=== PATIENT | female | born 1980 ===

== ENCOUNTER 2016-12-19 22:24 | Emergency (ER) | payer OTHER ==
[2016-12-19 22:30] VITALS: BP 112/72; PULSE 82; RESP 16; TEMP 98.1; O2SAT 100
--- NOTE | 2016-12-19 22:58 | ED PDOC ---
HPI: General Adult Time Seen by Provider: 12/19/16 22:47 Chief Complaint (Nursing): Cough, Cold, Congestion History Per: Patient Additional Complaint(s): Pt. c/o 1 day hx of cough, congestion, sore throat, and fever. Also reports feeling nauseous but has had not vomiting or abdominal pain. Denies sick contacts, recent travel, diarrhea, rash. Past Medical History Reviewed: Historical Data, Nursing Documentation, Vital Signs Vital Signs: Last Vital Signs Temp 98.1 F 12/19/16 22:27 Pulse 82 12/19/16 22:27 Resp 16 12/19/16 22:27 BP 112/72 12/19/16 22:27 Pulse Ox 100 12/19/16 22:58 - Family History Family History: States: No Known Family Hx - Home Medications Home Medications: Ambulatory Orders Medication Instructions Recorded Benzonatate [Tessalon Perle] 100 mg PO Q8 PRN #30 capsule 12/19/16 Fluticasone Propionate [Flonase] 2 spr NS DAILY PRN #1 bottle 12/19/16 - Allergies Allergies/Adverse Reactions: Allergies Allergy/AdvReac Type Severity Reaction Status Date / Time No Known Allergies Allergy Verified 12/19/16 22:27 Review of Systems ROS Statement: Except As Marked, All Systems Reviewed And Found Negative Constitutional: Positive for: Fever ENT: Positive for: Nose Congestion, Throat Pain Respiratory: Positive for: Cough Physical Exam - Reviewed Nursing Documentation Reviewed: Yes Vital Signs Reviewed: Yes - Physical Exam Appears: Positive for: Well, Non-toxic, No Acute Distress Head Exam: Positive for: ATRAUMATIC, NORMAL INSPECTION, NORMOCEPHALIC Skin: Positive for: Normal Color, Warm. Negative for: Rash Eye Exam: Positive for: EOMI, Normal appearance, PERRL ENT: Positive for: TM Is/Are (non-erythematous, non-bulging b/l), Pharyngeal Erythema. Negative for: Tonsillar Exudate, Tonsillar Swelling Neck: Positive for: Normal, Painless ROM Cardiovascular/Chest: Positive for: Regular Rate, Rhythm Respiratory: Positive for: CNT, Normal Breath Sounds Gastrointestinal/Abdominal: Positive for: Normal Exam, Soft. Negative for: Tenderness, Organomegaly Back: Positive for: Normal Inspection. Negative for: L CVA Tenderness, R CVA Tenderness Extremity: Positive for: Normal ROM Neurologic/Psych: Positive for: Alert, Oriented. Negative for: Aphasia, Facial Droop - Laboratory Results Urine POC: Negative - ECG O2 Sat by Pulse Oximetry: 100 - Progress ED Course And Treament: Zofran 4mg ODT given. Rapid flu, rapid strep ordered. Disposition - Clinical Impression Clinical Impression: Cough - Patient ED Disposition Is Patient to be Admitted: Transfer of Care (Signed out to Michelle JOHNSON pending lab results.) - Disposition Disposition: Routine/Home Disposition Time: 00:00 Condition: STABLE Prescriptions: Benzonatate [Tessalon Perle] 100 mg PO Q8 PRN #30 capsule PRN Reason: Cough Fluticasone Propionate [Flonase] 2 spr NS DAILY PRN #1 bottle PRN Reason: Allergy Symptoms
--- NOTE | 2016-12-20 00:53 | ED PDOC ---
- Laboratory Results Urine POC: Negative - ECG O2 Sat by Pulse Oximetry: 100 Pulse Ox Interpretation: Normal Medical Decision Making Medical Decision Making: Strep and influenza (-) Disposition - Clinical Impression Clinical Impression: Cough - POA Present On Arrival: None - Disposition Referrals: [facility] [Outside] Disposition: Routine/Home Disposition Time: 00:52 Condition: GOOD Prescriptions: Benzonatate [Tessalon Perle] 100 mg PO Q8 PRN #30 capsule PRN Reason: Cough Fluticasone Propionate [Flonase] 2 spr NS DAILY PRN #1 bottle PRN Reason: Allergy Symptoms
== END 2016-12-20 00:53 | disposition home or self-care (01) ==
LOC: H.ER 22:24
DX: R05 Cough (principal); R11.0 Nausea